=== PATIENT | male | born 1995 | race Caucasian/White ===

== ENCOUNTER 2025-10-08 12:19 | Emergency (ER) | payer OTHER ==
[~2025-10-08] VITALS: Ht 175.3 cm; Wt 136.3 kg
[2025-10-08 12:22] VITALS: BP 160/88; TEMP 96.6; O2SAT 98
[2025-10-08] MEDS ORDERED: VENTAER INH (14:32)
[2025-10-08] MEDS ORDERED: PRED20TA PO (14:32)
[2025-10-08] MEDS ORDERED: CEPH500C PO (14:32)
== END 2025-10-08 14:39 | disposition home or self-care (01) ==
LOC: M ED 12:19
DX: S40.861A Insect bite (nonvenomous) of right upper arm, initial encounter (principal); S40.862A Insect bite (nonvenomous) of left upper arm, initial encounter; S80.861A Insect bite (nonvenomous), right lower leg, initial encounter; S80.862A Insect bite (nonvenomous), left lower leg, initial encounter; S10.96XA Insect bite of unspecified part of neck, initial encounter; W57.XXXA Bitten or stung by nonvenomous insect and other nonvenomous arthropods, initial encounter; Y92.89 Other specified places as the place of occurrence of the external cause; Y93.9 Activity, unspecified; Y99.9 Unspecified external cause status; F17.200 Nicotine dependence, unspecified, uncomplicated; J45.909 Unspecified asthma, uncomplicated; Z88.1 Allergy status to other antibiotic agents